=== PATIENT | male | born 1965 | race American Indian/Alaskan Native ===

== ENCOUNTER 2021-01-04 10:53 | Outpatient (CLI) | payer OTHER ==
--- NOTE | 2021-01-04 14:18 | XRay Report ---
CHEST 2 VIEWS INDICATION / CLINICAL INFORMATION: COPD,CHRONIC ASTHMA. COMPARISON: None available. FINDINGS: SUPPORT DEVICES: None. HEART / MEDIASTINUM: No significant abnormality. LUNGS / PLEURA: No significant pulmonary or pleural abnormality. No pneumothorax. ADDITIONAL FINDINGS: No significant additional findings. IMPRESSION: 1. 7-8 mm nodule in the left midlung. Findings may represent granuloma however pulmonary nodule not e xcluded. Follow-up CT baseline could be performed Signer Name: Wilber Oliver MD Signed: 01/04/2021 2:13 PM Workstation Name: [id number]
== END 2021-01-04 10:54 | disposition home or self-care (01) ==
LOC: XRAY 10:53
PROVIDERS: ATTEND Internal Medicine
DX: R91.1 Solitary pulmonary nodule (principal)
CPT/HCPCS: 71046